=== PATIENT | female | born 1990 | race African-American/Black ===

== ENCOUNTER 2022-04-21 12:08 | Emergency (ER) | payer MEDICAID ==
[~2022-04-21] VITALS: Ht 182.9 cm; Wt 162.0 kg
[~2022-04-21 12:08] MED LIST: ALBU6.7H9 INH; AZIT250T PO; CLIN-27 PO; CLIN300C54 PO; HYDR-4383 PO; IBUP-1984 PO
[2022-04-21 12:24] VITALS: BP 158/99
[2022-04-21] MEDS ORDERED: POTA-192 PO (14:57)
[2022-04-21] MEDS ORDERED: CHOL100025 PO (14:57)
[2022-04-21] MEDS ORDERED: METF-1203 PO (14:57)
[2022-04-21] MEDS ORDERED: FURO-150 PO (14:57)
[2022-04-21] MEDS ORDERED: LOSA25TA41 PO (14:57)
[2022-04-21] MEDS ORDERED: SULF1TAB49 PO (14:57)
== END 2022-04-21 15:17 | disposition home or self-care (01) ==
LOC: ER 12:09
DX: L02.13 Carbuncle of neck (principal); L02.12 Furuncle of neck; Z88.0 Allergy status to penicillin; J45.909 Unspecified asthma, uncomplicated; Z56.0 Unemployment, unspecified
CPT/HCPCS: 99283

== ENCOUNTER 2023-06-24 11:31 | Emergency (ER) | payer MEDICAID ==
[~2023-06-24] VITALS: Ht 170.2 cm; Wt 202.0 kg
[~2023-06-24 11:31] MED LIST changes: +ALBU6.7H14 INH; -ALBU6.7H9 INH; +CHOL100025 PO; +LOSA25TA41 PO; +METF-1203 PO
[2023-06-24 12:37] LABS: BASOPHILS % (AUTO) 0.5 % (0-1); EOSINOPHILS # (AUTO) 0.3 X10'3 (0-0.9); EOSINOPHILS % (AUTO) 3.3 % (0-6); HEMOGLOBIN 12.4 g/dl (12.0-16.0); LYMPHOCYTES # (AUTO) 1.9 X10'3 (1.1-4.8); LYMPHOCYTES % (AUTO) 20.1 % (21-51); MEAN CORPUSCULAR HEMOGLOBIN 25.7 PG (27.0-31.0); MEAN CORPUSCULAR HGB CONC 31.8 g/dL (33.0-36.5); MEAN CORPUSCULAR VOLUME 80.6 FL (78-98); MONOCYTES # (AUTO) 0.7 X10'3 (0-0.9); MONOCYTES % (AUTO) 7.4 % (2-12); NEUTROPHILS # (AUTO) 6.6 X10'3 (1.8-7.7); NEUTROPHILS % (AUTO) 68.7 % (42-75); PLATELET COUNT 437 X10'3 (140-440); RED BLOOD COUNT 4.83 X10'6 (4.20-5.60); RED CELL DISTRIBUTION WIDTH 17.9 % (11.5-14.5); WHITE BLOOD COUNT 9.6 X10'3 (4.5-11.0)
[2023-06-24 13:12] LABS: ALANINE AMINOTRANSFERASE 19 U/L (12-78); ALBUMIN 3.5 G/DL (3.4-5.0); ALBUMIN/GLOBULIN RATIO 0.9 (1.1-1.5); ALKALINE PHOSPHATASE 77 IU/L (46-116); ANION GAP 5 (8-16); ASPARTATE AMINO TRANSFERASE 16 U/L (10-37); BILIRUBIN,TOTAL 0.4 MG/DL (0.1-1.0); BLOOD UREA NITROGEN 6 MG/DL (7-18); BUN/CREATININE RATIO 7.8 (10.0-20.0); CALCIUM 8.9 MG/DL (8.5-10.1); CHLORIDE 105 MMOL/L (99-107); CREATININE 0.77 MG/DL (0.40-0.90); GLUCOSE 91 MG/DL (70-104); PRO BRAIN NATRIURETIC PEPTIDE 101 PG/ML (0-125); SODIUM 142 MMOL/L (135-145); TOTAL PROTEIN 7.5 G/DL (6.4-8.2); eCRCL 100 ML/MIN; eGFR > 90 ML/MIN
[2023-06-24 15:48] LABS: D-DIMER 0.51 MG/L FEU (0-0.50)
[2023-06-24] MEDS ORDERED: iohexol 350MG/ML 100ml bottle IV ONE (16:23)
[2023-06-24 17:47] VITALS: BP 134/78; PULSE 78; RESP 16; TEMP 98.1; O2SAT 98
== END 2023-06-24 17:48 | disposition home or self-care (01) ==
LOC: ER 11:31
DX: J45.909 Unspecified asthma, uncomplicated (principal); B34.9 Viral infection, unspecified; Z88.0 Allergy status to penicillin; Z88.5 Allergy status to narcotic agent; Z79.2 Long term (current) use of antibiotics; Z79.899 Other long term (current) drug therapy; Z79.1 Long term (current) use of non-steroidal anti-inflammatories (NSAID)
CPT/HCPCS: 36415; 71045; 71275; 80053; 83880; 85025; 85379; 99285; J3490; Q9967

== ENCOUNTER 2025-02-02 12:32 | Emergency (ER) | payer MEDICAID ==
[~2025-02-02] VITALS: Ht 170.2 cm; Wt 157.3 kg
[2025-02-02 12:41] VITALS: BP 184/118; PULSE 73; RESP 18; O2SAT 98
[2025-02-02 14:36] VITALS: TEMP 97.1
== END 2025-02-02 14:42 | disposition home or self-care (01) ==
LOC: ER 12:33
DX: R05.9 Cough, unspecified (principal); J45.909 Unspecified asthma, uncomplicated; Z88.5 Allergy status to narcotic agent
CPT/HCPCS: 71046; 99283

== ENCOUNTER 2025-04-30 13:08 | Emergency (ER) | payer MEDICAID ==
[~2025-04-30] VITALS: Ht 170.2 cm; Wt 167.9 kg
[2025-04-30 13:18] VITALS: BP 166/102; PULSE 91; RESP 18; TEMP 97.4; O2SAT 100
--- NOTE | 2025-04-30 13:31 | Physician Documentation ---
History of Present Illness ~ General Chief Complaint: See Chief Complaint Stated Complaint: PREG TEST Time Seen by MD: 13:21 Primary Medical Doctor: None Source: patient Mode of Arrival: POV Exam Limitations: no limitations History of Present Illness Initial Comments 34-year-old female requesting test as she is actively trying to get but has a regular cycles last menstrual cycle unknown day but a pproximately 3 weeks ago. No other acute concerns Medication Reconciliation Allergies: Coded Allergies: codeine (Verified Allergy, Unknown, 04/30/25) Scheduled Azithromycin (Zithromax), 1 DOSPAK PO UD Cholecalciferol (Vitamin D), 1 TAB PO DAILY Clindamycin HCl (Clindamycin HCl), 1 CAP PO QID Clindamycin Hcl (Clindamycin Hcl), 150 MG PO QID Hydrocodone/Acetaminophen ([place] 5-325 Tablet), 1 TABLET PO TID Ibuprofen* (Motrin*), 800 MG PO TID Losartan Potassium (Losartan Potassium), 1 TAB PO DAILY Metformin HCl (Metformin HCl), 1 TAB PO BID Scheduled PRN Albuterol Sulfate (Proventil Hfa), 2 PUFFS INH QID PRN for COUGH OR WHEEZE Albuterol Sulfate (Proventil Hfa), 2 PUFFS INH Q6H PRN for cough Past Medical History Past Medical History: Asthma Past Surgical History: noncontributory Alcohol Use: None Drug Use: none Lives with: Family Lives In: Home Occupation: unemployed Review of Systems All Other Systems at this time: Reviewed and Negative Physical Exam Physical Exam Vital Signs: RN Vital Signs have been reviewed: Yes, Temperature: 97.4, Source: Temporal, Heart Rate: 91, Respiratory Rate: 18, BP: 166/102, Pulse Oximetry: 100, Weight: 167.900 Oxygen Flow Rate: 0 Physical Exam General: Alert, no apparent distress. HEENT: moist mucous membranes. Neck: Full range of motion. Respiratory: Lungs clear, no respiratory distress. Chest: No accessory muscle use. Cardiovascular: Regular rate and rhythm, no murmurs. Extremities: Normal range of motion, no deformity. Neurologic: Oriented x4. Psychiatric: Normal mood and affect. Skin: Normal color, warm and dry. No edema, no ecchymosis. Progress Results/Orders Results/Orders Completed Orders - AN QUINTERO DIGITAL ASSET MANAGER Hcg, Ur Ql (04/30/25 13:23) Vital Signs 04/30/25 13:18 Temp 97.4 Pulse 91 Resp 18 B/P (MAP) 166/102 Pulse Ox 100 O2 Flow Rate 0 Laboratory Tests Test 04/30/25 13:24 Urine HCG, Qualitative Negative Medical Decision Making Findings Pasta test even at the [employer] [facility] following up with primary care urine ECG was ordered. Patient to follow up Departure Time of Disposition: 13:58 Disposition: 01 HOME / SELF CARE / HOMELESS Impression: Primary Impression: General medical exam Condition: Stable Additional Instructions: test was negative Referrals: NO PRIMARY CARE PROVIDER (PCP) Education Educated: Patient Educated regarding: diagnosis, treatment, need for follow up Signature Scribe Signature: No scribe Attestation: The note accurately reflects work and decisions made by me.An Quintero - PAUL 04/30/25 13:31 AN QUINTERO NP Apr 30, 2025 13:31
[2025-04-30 13:42] LABS: URINE HCG NEGATIVE (NEG)
== END 2025-04-30 14:00 | disposition home or self-care (01) ==
LOC: ER 13:08
DX: J45.909 Unspecified asthma, uncomplicated (principal); Z88.5 Allergy status to narcotic agent; Z79.899 Other long term (current) drug therapy; Z56.0 Unemployment, unspecified
CPT/HCPCS: 81025; 99283

== ENCOUNTER 2025-05-15 10:12 | Emergency (ER) | payer MEDICAID ==
[~2025-05-15] VITALS: Ht 170.2 cm; Wt 157.3 kg
[2025-05-15 10:17] VITALS: BP 185/115; PULSE 82; RESP 16; TEMP 97.2; O2SAT 99
[2025-05-15] MEDS ORDERED: CEPH-585 PO (10:31)
[2025-05-15] MEDS ORDERED: BACI3.5O2 LEFTEYE (10:31)
--- NOTE | 2025-05-15 10:31 | Physician Documentation ---
History of Present Illness ~ Chief Complaint: Eye Pain Stated Complaint: EYE PAIN Time Seen by MD: 10:21 Primary Medical Doctor: None HPI 34-year-old female presents to the ED with a complaint of left eye pain and swelling. States she thought she had a stye and was placed in ointment on the however her symptoms have worsened reports having to use a CPAP night which she thinks may have caused her infection. Denies any fevers or nausea vomit Day of Onset: May 15, 2025 Medication Reconciliation Allergies: Coded Allergies: codeine (Verified Allergy, Unknown, 05/15/25) Scheduled Azithromycin (Zithromax), 1 DOSPAK PO UD Cholecalciferol (Vitamin D), 1 TAB PO DAILY Clindamycin HCl (Clindamycin HCl), 1 CAP PO QID Clindamycin Hcl (Clindamycin Hcl), 150 MG PO QID Hydrocodone/Acetaminophen ([place] 5-325 Tablet), 1 TABLET PO TID Ibuprofen* (Motrin*), 800 MG PO TID Losartan Potassium (Losartan Potassium), 1 TAB PO DAILY Metformin HCl (Metformin HCl), 1 TAB PO BID Scheduled PRN Albuterol Sulfate (Proventil Hfa), 2 PUFFS INH QID PRN for COUGH OR WHEEZE Albuterol Sulfate (Proventil Hfa), 2 PUFFS INH Q6H PRN for cough Past Medical History Past Medical History: Asthma Past Surgical History: noncontributory Alcohol Use: None Drug Use: none Lives with: Family Lives In: Home Occupation: unemployed Review of Systems All Other Systems at this time: Reviewed and Negative ROS As stated above in the HPI, otherwise all systems are reviewed and negative. Physical Exam Vital Signs: Temperature: 97.2, Source: Temporal, Heart Rate: 82, Respiratory Rate: 16, BP: 185/115, Pulse Oximetry: 99, Weight: 157.270 Oxygen Flow Rate: 0 Physical Exam General: Alert, no apparent distress. HeENT: Inflamed and swollen left upper eyelid with notable discharge coming from the lateral aspect Neurologic: Oriented x4. Psychiatric: Normal mood and affect. Skin: Normal color, warm and dry. No edema, no ecchymosis. Progress Results/Orders Results/Orders Vital Signs 05/15/25 10:17 Temp 97.2 Pulse 82 Resp 16 B/P (MAP) 185/115 Pulse Ox 99 O2 Flow Rate 0 Medical Decision Making Findings Seeing patient for blepharitis, stye and conjunctivitis. Going to provide her with both ointment and systemic oral antibiotic Eye Diff. Dx: Considerations: Include: [place], Conjuctivits-allergic, Conjuctivitis-bacterial, Conjuctivits-chlamydial, Conjuctivitis-viral, Corneal abrasion, Corneal laceration, Corneal ulceration, Foreign body-conjuctiva, Fo reign body-corneal, Foreign body-intraocular, Foreign body-lid, Glaucoma, Globe rupture, Hordeolum, Iritis, Orbital cellulitis, Periobital cellulitis, Retinal artery occulsion, Retinal vein occlusion, Rust ring, Subconjunctival hem, Ultraviolet keratitis, Uveitis, Vitreous hemorrhage, Other Departure Disposition: HOME / SELF CARE / HOMELESS Impression: Primary Impression: Swelling of eye Additional Impression: Conjunctivitis Discharge Instructions: Sty Referrals: NO PRIMARY CARE PROVIDER (PCP) Prescriptions Cephalexin*Monohydrate* (Keflex*) 500 Mg Capsule 1 CAP PO QID, #40 CAP Prov: FEDERICO GRIGGS NP 05/15/25 Bacitracin Opth Oint* (Bacitracin Opth Oint*) 3.5 Gm Tube 1 APPLIC LEFTEYE Q12H for 10 Days, #10 GM Prov: FEDERICO GRIGGS NP 05/15/25 Education Educated: Patient Educated regarding: diagnosis Signature Scribe Signature: y Attestation: Scribed for Federcio Griggs Compressor Operator Portable by Federico Collazo NP . 05/15/25 10:31 FEDERICO GRIGGS NP May 15, 2025 10:31
== END 2025-05-15 10:51 | disposition home or self-care (01) ==
LOC: ER 10:12
DX: H10.9 Unspecified conjunctivitis (principal); R22.0 Localized swelling, mass and lump, head; J45.909 Unspecified asthma, uncomplicated; Z88.5 Allergy status to narcotic agent
CPT/HCPCS: 99283